=== PATIENT | male | born 1950 | race Caucasian/White ===

== ENCOUNTER 2023-12-19 14:27 | Emergency (ER) | payer MEDICARE ==
[2023-12-19] MEDS ORDERED: SODIUM CHLORIDE 0.9% 500 ML BAG ONE (16:05)
[2023-12-19] MEDS ORDERED: SODIUM CHLORIDE 0.9% 1,000 ML BAG ONE (16:05)
[2023-12-19] MEDS ORDERED: POTASSIUM CHLORIDE 200 ML ONE (18:11)
[2023-12-19] MEDS ORDERED: POTASSIUM CHLORIDE ER 20 MEQ TAB.ER PO ONE (18:11)
--- NOTE | 2024-01-21 14:56 | XR ---
Site ID [facility] Freddie Franco ID [id number] Order # Procedure XR 2 VIEW CHEST EXAMINATION TYPE: XR chest 2V DATE OF EXAM: 12/20/2023 8:22 AM CLINICAL INDICATION: Pain COMPARISON: NONE THIS EXAM WAS READ DURING PACS DOWNTIME, NO PRIORS AVAILABLE. hs from TECHNIQUE: XR chest 2V Frontal view of the chest. FINDINGS: Lungs/Pleura: There is no evidence of pleural effusion, focal consolidation, or pneumothorax. Pulmonary vascularity: Unremarkable. Heart/mediastinum: Cardiomediastinal silhouette is unremarkable. Musculoskeletal: No acute osseous pathology. IMPRESSION: No acute cardiopulmonary disease/process.
== END 2023-12-19 20:47 | disposition home or self-care (01) ==
LOC: EC 14:27
CPT/HCPCS: 71046; 93005; 96361; 96365; 96366; 99284